=== PATIENT | female | born 1980 | race Caucasian/White ===

== ENCOUNTER → 2019-12-18 09:10 | Outpatient (CLI) | payer BC, SELFPAY ==
[2014-01-25 11:43] VITALS: BMI 21.6
--- NOTE | 2019-12-18 09:14 | BI_ITS ---
MAMMOGRAPHY - BILATERAL DIAGNOSTIC REASON FOR EXAM: Female, 39 years old. BILAT DX FOR LT LUMP - NO FAM HX - LT MASTITIS FOR 15 YRS - CURRENT HEALING /DRAINING WOUND - PRE OP FOR REMOVAL OF DUCTS - PT HAS HAD ABCESS DRAINED TWICE THROUGH THE YEARS PERTINENT HISTORY: Non-contributory. TECHNIQUE: Digital bilateral breast sanjeev (3D mammographic acquisition) in the CC and MLO projections. 2-D mediolateral oblique (MLO) and craniocaudad (CC) views of both breasts were obtained. CAD: Full Field Digital Mammography with Computer Added Detection was performed. COMPARISON: None. FINDINGS: Breast Composition: The breasts are extremely dense, which lowers the sensitivity of mammography. Small punctate calcifications are seen in the medial far anterior aspect of the right breast most likely represent skin calcifications. Follow-up in 6 months would be helpful to determine stability. There are no dominant masses or suspicious calcifications. No other significant abnormalities are identified. BI/DIAG MAMM W/CAD, BILAT IMPRESSION: Benign bilateral diagnostic mammogram. Short-interval follow-up recommended in six months. (C) Small punctate calcifications are seen in the medial far anterior aspect of the right breast most likely represent skin calcifications. Follow-up in 6 months would be helpful to determine stability. ASSESSMENT CATEGORY: BIRADS Category 3: Probably Benign - Short-Interval Follow-up Suggested. A letter regarding these results will be sent to the patient by the facility within 30 days. Approximately 10% of breast cancers are not detected by mammography. A normal mammogram should not delay biopsy of a clinically suspicious abnormality. Electronically Signed: Rojas Willoughby, at 13:00 EDT Tel , Service support ,
--- NOTE | 2019-12-18 10:42 | US_ITS ---
STUDY: ULTRASOUND BREAST - LEFT REASON FOR EXAM: Female, 39 years old. Left breast abscess TECHNIQUE: Axial and longitudinal images of the LEFT breast were performed with a high resolution ultrasound transducer. # OF IMAGES: 53 COMPARISON: None. FINDINGS: LEFT Breast: There is a lesion #1 in the medial aspect of the left breast. The lesion measures 1.7 x 1.7 x 1 cm in size. Clock notation: 9 o''clock position. Distance from nipple: 3 cm. Posterior Enhancement: Yes. Posterior Shadowing: None. Margins: Sharp and jagged. Echogenicity: Hypoechoic. Compression effect on Shape: No change. There is a lesion # 2 in the retroareolar region. The lesion measures 1.6 x 1.3 x 0.8 cm in size. Posterior Enhancement: Yes. Posterior Shadowing: None. Margins: Sharp and smooth. Echogenicity: Anechoic. Compression effect on Shape: No change. US/Breast Limited Unilateral IMPRESSION: 2 lesions in the left breast as described above are consistent with abscesses. ASSESSMENT CATEGORY: BIRADS Category 3: Probably Benign - Short-Interval Follow-up Suggested. A letter regarding these results will be sent to the patient by the facility within 30 days. Electronically Signed: Rojas Willoughby, at 17:24 EDT Tel , Service support ,
== END ==
PROVIDERS: PCP Student in an Organized Health Care Education/Training Program; Referring Provider Surgery; Visit Provider Surgery
DX: N61.1 Abscess of the breast and nipple (principal)
CPT/HCPCS: 76642; 77062; 77066; G0279

== ENCOUNTER 2019-12-31 05:43 | Day surgery (SDC) | payer BC, SELFPAY ==
[2019-12-24 06:03] VITALS: BMI 24.0
[2019-12-24 16:47] LABS: Absolute Lymphocyte Count 2.48 X10^3/uL (0.83-4.51); Absolute Neutrophil Count 5.5 X10^3/uL (2.0-7.7); Basophil# 0.07 X10^3/uL; Basophil% 0.8 % (0-1); Eosinophil# 0.08 X10^3/uL; Eosinophils% 0.9 % (0-5); Hematocrit 40.8 % (37-47); Hemoglobin 13.5 g/dL (12.0-15.0); Lymphocyte # 2.48 X10^3/ul (4.0); Lymphocyte % 28.4 % (19-41); Mean Corp Hgb Conc 33.1 g/dL (32-36); Mean Corpuscular Volume 99.8 fL (81-99); Mean Platelet Vol. 9.5 fl (6.2-12.0); Monocyte# 0.62 X10^3/uL; Monocyte% 7.1 % (0-10); NRBC Flagged by Analyzer 0 % (0-5); Neutrophil # 5.46 X10^3/uL (2.7-7.7); Neutrophil % 62.6 % (47-70); Platelet Count 362 K/mm3 (150-450); RBC Distribution Width CV 11.6 % (11.6-14.6); RBC Distribution Width SD 42.4 fl (35.1-43.9); Red Blood Count 4.09 M/mm3 (4.2-5.4); White Blood Count 8.7 K/mm3 (4.4-11.0)
[2019-12-24 17:01] LABS: Anion Gap 3 (5-15); BUN 13 mg/dL (7-18); BUN/Creat Ratio 15.4 RATIO (10-20); Calcium,Total 9.4 mg/dL (8.5-10.1); Chloride 107 mmol/L (98-107); Creatinine, Serum 0.84 mg/dL (0.55-1.02); EST Glomerular Filtration Rate 79 mL/min (>60); Est Glom Filt Rate - Afr Amer 96 mL/min (>60); Glucose 95 mg/dL (74-106); Sodium Level 136 mmol/L (136-145)
--- NOTE | 2019-12-31 05:47 | HP.PCM_ITS ---
Problem List (1) Left breast abscess Status: Acute History and Physical Date of Admission: 12/31/19 Intake Visit Reasons: LEFT BREAST MASITIS/ REJI 12/17 [facility] Chief Complaint: left breast abscess--recurrent Senior Operator Required: No Is patient in pain?: Yes Allergies No Known Allergies Allergy (Verified 12/24/19 15:10) Medications multivitamin,sg-ndsj-hllgmowa 1 tab PO DAILY 12/24/19 [History] Is last menstrual period known: No Post menopausal: No Patient : No [facility] Medical History (Updated 12/24/19 @ 15:[address] Jean Dimas MD) Tobacco dependency (Acute) Left breast abscess (Acute) Anemia (Acute) Ulcerative colitis (Acute) recurrent breast abscess (Acute) Surgical History (Updated 12/24/19 @ 15:09 by Cass Ingram) History of breast surgery (Acute) Family History (Updated 12/24/19 @ 15:09 by Cass Ingram) Mother Asthma Social History (Updated 12/24/19 @ 15:[address] Jean Dimas MD) Smoking Status: Former smoker HPI HPI HPI: CASSANDRA STARKS, is a 39 F who presents to the office today for surgical consultation regarding chronic recurring left breast abscess. I assisted the patient back in 2004 with an I&D of a left breast abscess. At that time she stated that she had a history of ulcerative colitis. She was followed by Dr. Jaison De Leon. She had been on mesalamine and steroids in the past but recently her UC apparently has been under excellent control. She states that she does not have any routine particular follow-up regarding that but what is most pertinent is that she is not currently on any immune modulating medications. She was recently seen by Dr. Marylu Roblero because of a spontaneous draining medial left breast abscess. Patient was placed on cephalexin 5 mg twice daily. Although apparently March 2019 the patient had a abscess and recommendations were made for much more radical debridement apparently on this occasion Dr. Graves suggested the patient that referrals to plastic surgery at [facility] would be pertinent at this time. The patient has had chronic nipple inversion of the left breast. At the [facility] on December 18, 2019 she had bilateral diagnostic mammography. Small punctate calcifications in the medial far anterior aspect of the right breast were seen probably skin calcifications follow-up in 6 months offered as an option. She was also felt to have left breast abnormality so on December 17 left breast ultrasound was performed. In the medial aspect of the left breast 9 o'clock position 3 cm from the nipple there is a 1.7 x 1.7 x 1 cm sized irregular lesion. The second lesion is in the retroareolar area of the left breast measuring 1.6 x 1.3 x 0.8 cm. These findings are felt to be benign. The patient states that she had Dr. Roblero do a I&D March 2019. The patient did well for a couple months and had recurrent pain. She actually describes an episode where she was missing work for approximately a week due to the severe pain. The area then spontaneously drained She repetitively states that she is not overly concerned by the cosmetics. She has had chronic nipple inversion on the left. She is hoping for definitive management. She has been a chronic cigarette smoker. She continues to smoke cigarettes at the rate of a half a pack per day. She states that she is tried multiple different approaches to stop but none of them have been successful. She is aware that cigarette smoking correlates with her chronic breast abscess issues [facility] Imaging Services [address] [place] [address] DIAG MAMM W/CAD, BILAT MR#: [id number] Name: CASSANDRA DE LA GARZA [facility] #:[id number] : 1980F 39 From: Rojas Willoughby MD PCP:Dr. Wiliam Peacock, DO Status:REG CLI Study:DIAG MAMM W/CAD, BILAT Date of Exam:12/18/19 Exam#[id number] Ordering Dr: Jean Dimas MD MAMMOGRAPHY - BILATERAL DIAGNOSTIC REASON FOR EXAM: Female, 39 years old. BILAT DX FOR LT LUMP - NO FAM HX - LT MASTITIS FOR 15 YRS - CURRENT HEALING /DRAINING WOUND - PRE OP FOR REMOVAL OF DUCTS - PT HAS HAD ABCESS DRAINED TWICE THROUGH THE YEARS PERTINENT HISTORY: Non-contributory. TECHNIQUE: Digital bilateral breast sanjeev (3D mammographic acquisition) in the CC and MLO projections. 2-D mediolateral oblique (MLO) and craniocaudad (CC) views of both breasts were obtained. CAD: Full Field Digital Mammography with Computer Added Detection was performed. COMPARISON: None. FINDINGS: Breast Composition: The breasts are extremely dense, which lowers the sensitivity of mammography. Small punctate calcifications are seen in the medial far anterior aspect of the right breast most likely represent skin calcifications. Follow-up in 6 months would be helpful to determine stability. There are no dominant masses or suspicious calcifications. No other significant abnormalities are identified. BI/DIAG MAMM W/CAD, BILAT IMPRESSION: Benign bilateral diagnostic mammogram. Short-interval follow-up recommended in six months. (C) Small punctate calcifications are seen in the medial far anterior aspect of the right breast most likely represent skin calcifications. Follow-up in 6 months would be helpful to determine stability. ASSESSMENT CATEGORY: BIRADS Category 3: Probably Benign - Short-Interval Follow-up Suggested. A letter regarding these results will be sent to the patient by the facility within 30 days. Approximately 10% of breast cancers are not detected by mammography. A normal mammogram should not delay biopsy of a clinically suspicious abnormality. Electronically Signed: Rojas Willoughby, at 13:00 EDT Tel , Service support , [facility] Imaging Services [address] [place] [address] Breast Limited Unilateral MR#: [id number] Name: CASSANDRA DE LA GARZA [facility] #:[id number] : 1980F 39 From: Rojas Willoughby MD PCP:Dr. Wiliam Peacock, DO Status:REG CLI Study:Breast Limited Unilateral Date of Exam:12/18/19 Exam#[id number] Ordering Dr: Jean Dimas MD STUDY: ULTRASOUND BREAST - LEFT REASON FOR EXAM: Female, 39 years old. Left breast abscess TECHNIQUE: Axial and longitudinal images of the LEFT breast were performed with a high resolution ultrasound transducer. # OF IMAGES: 53 COMPARISON: None. FINDINGS: LEFT Breast: There is a lesion #1 in the medial aspect of the left breast. The lesion measures 1.7 x 1.7 x 1 cm in size. Clock notation: 9 o''clock position. Distance from nipple: 3 cm. Posterior Enhancement: Yes. Posterior Shadowing: None. Margins: Sharp and jagged. Echogenicity: Hypoechoic. Compression effect on Shape: No change. There is a lesion # 2 in the retroareolar region. The lesion measures 1.6 x 1.3 x 0.8 cm in size. Posterior Enhancement: Yes. Posterior Shadowing: None. Margins: Sharp and smooth. Echogenicity: Anechoic. Compression effect on Shape: No change. US/Breast Limited Unilateral IMPRESSION: 2 lesions in the left breast as described above are consistent with abscesses. ASSESSMENT CATEGORY: BIRADS Category 3: Probably Benign - Short-Interval Follow-up Suggested. A letter regarding these results will be sent to the patient by the facility within 30 days. Electronically Signed: Rojas Willoughby, at 17:24 EDT Tel , Service support , HPI HPI HPI: CASSANDRA STARKS, is a 39 F who presents to the office today for Exam Const General: cooperative, healthy appearing, comfortable, no acute distress Nutritional Appearance: average body habitus Orientation: alert, awake HENOK Head: normal to inspection Chest Other: Right breast: No focal mass, no nipple discharge, no axillary or clavicular adenopathy Left breast: Draining site medial periareolar left breast. Strongly retracted left nipple. Erythema medially. Induration palpable. No axillary or clavicular adenopathy. Resp Effort & Inspection: normal respiratory effort Auscultation: clear to auscultation bilaterally Cardio Rate: regular rate Rhythm: regular rhythm GI Palpation: soft, no hepatosplenomegaly Neuro General: alert Cognition: normal cognition Extrem General: no calf tenderness Psych Affect: normal affect Assessment & Plan Problems 1. Left breast abscess N61.1 2. Tobacco dependency F17.200 Plan Chronic recurring left breast abscess in light of chronic tobacco addiction. Chronic left nipple retraction. Separate abscess cavity medial left breast and retroareolar left breast. I have offered her a wide retroareolar and medial debridement of the left breast. I discussed securing of the retroareolar aspect of the nipple with an absorbable suture. I did not feel comfortable with nipple excision at this time as I had concerns as to whether the areola would heal with suture approximation in light of the planned radical debridement. Cosmetically she is aware that the nipple retraction will certainly persist. She is aware that future surgery dealing with a dimple may be required. She is aware that chronic breast abscesses are difficult to definitively resolve particularly in light of the ongoing tobacco use. We did briefly discuss the recommendation for plastic surgery referral to [facility]. The patient is not interested in that at this time. She states that she will except some scarring and deformity. She is aware that the [facility] is currently reporting a low local incidence of Covid-19. She has had an opportunity to ask and have questions answered. Pending COVID testing we will schedule and proceed as noted. I appreciate the opportunity of assisting with her surgical care Copy: Dr. Wiliam Dimas M.D., F.A.C.S. Coding Level of Care Code Off vis,new,level 3 Diagnoses Left breast abscess N61.1 Tobacco dependency F17.200 I have re-examined the patient. There are no clinical changes since date of exam. Procedure Criteria Procedure Type: Elective COVID Risk Discussion: The surgeon/proceduralist and patient have discussed in detail the risk of exposure to and/or potential harm posed by the COVID-19 virus with having a surgery/procedure at this time versus the risk of delaying the surgery/procedure. It is not possible to know either the risk of delaying the surgery or procedure or chance of getting an infection with perfect accuracy, but a joint decision was made between the patient and the surgeon/proceduralist to proceed at this time with the scheduled surgery/procedure as indicated on the consent form.
[2019-12-31 06:04] VITALS: BP 138/93; PULSE 91; RESP 16; TEMP 36.6; O2SAT 99; BMI 24.1
[2019-12-31 06:06] LABS: Internal QC Validated? YES +Cl - CLEAR BKGD; Pregnancy, Urine Negative Negative
[2019-12-31] MEDS: Lactated Ringers 1,000 ML 100 ML IV (06:30)
--- NOTE | 2019-12-31 07:30 | BRBX_PTH ---
PATIENT: CASSANDRA DE LA GARZA LOC: [facility] [place] U#:[id number] AGE/SX: 39/F ROOM: RE12/31/[address]: Dr. Jean Dimas MD : 1980 BED: DIS: 12/31/2019 SPEC #: [id number] RECD: 12/31/19 09:28 STATUS: [facility] #: [id number] MAYCOL: 12/31/19 07:[address]: Jean Dimas DEPT: SURGICAL PATHOLOGY RECD BY: Leroy Loyola ENTERED: 12/31/19 10:47 SP TYPE: BREAST BX OTHR DR: Dr. Wiliam Peacock, DO Tissues: Left breast, NOS Procedures: Surgery Specimen Level IV HEADER OPERATION: Wide debridement chronic medial and retroareolar breast abscess PRE-OP DIAGNOSIS: Chronic left breast abscess TISSUE SUBMITTED: Left retroareolar breast abscess MICROSCOPIC DIAGNOSIS Left breast, retroareolar region, lumpectomy: Consistent with focal abscess formation. Fibrocystic change. Focal intraductal hyperplasia without atypia. Focal Banal microcalcifications. No evidence of malignancy. AM:valerie 01/01/20 MICROSCOPIC DESCRIPTION Slides are reviewed. GROSS DESCRIPTION Received in fixative is one container labeled with the patient's name and designated left retroareolar breast abscess. The specimen consists of a piece of fibroadipose tissue measuring 5 x 4 x 3 cm. Also present in the container is a detached piece of fibroadipose tissue measuring 2.5 x 1.5 x 1 cm. A piece of skin is noted in the largest piece measuring 2 x 0.3 cm. Sections reveal extensive fibrous cut surfaces. No obvious mass lesion is identified. Physician Gynecologist sections are submitted in eight cassettes as follows: 1 - smaller piece of tissue, 2-8 - larger piece of tissue (cassette 2 also contains the skin, entirely submitted). / ALBERTO:valerie 12/31/19 TC:2 CPT: 76762
[2019-12-31] MEDS: Cefazolin 2 GM in 0.9% Normal Saline 100 ML IV (07:34)
[2019-12-31] MEDS: Bupivacaine Mpf 0.5% 30 ML VIAL (08:30)
--- NOTE | 2019-12-31 08:41 | PCM.OPRPT ---
Problem List (1) Left breast abscess Status: Acute Report of Operation Date of Procedure: 12/31/19 Pre-Operative Diagnosis: Chronic left breast retroareolar breast abscesses Post-Operative Diagnosis: Chronic retroareolar left breast abscesses and chronic nipple inversion Surgery/Procedure Performed:: Left retroareolar breast abscess debridement Description of Surgical Findings:: Timeout and informed consent was obtained. 39-year-old female was taken to the operating place upon the table underwent general anesthesia. The left breast was sterilely prepped and draped. She had an area of spontaneous drainage medial left breast. This drainage site was curvilinearly elliptically excised. Sharp dissection was instituted immediately retroareolar Matthias. The nipple was found to be tightly inverted tissue was cleared off the base of the nipple and it was re-everted. Retroareolar tissue was extraordinarily densely fibrotic. No clear abscess pocket was encountered. Electrocautery dissection and sharp dissection was used to excise the retroareolar tissue and the tissue left breast 3 o'clock position. All of this was excised and mass. What was of note was how densely fibrous the tissue was. 1 droplet of purulent material was encountered and sent for culture. There was a small area of greenish fluid that was sent for anaerobic culture. No definitive abscess cavity was encountered just extraordinarily dense fibrous white breast tissue. There was no clear evidence of residual abscess or drainage. The base of the nipple was secured with interrupted 2-0 chromic. Hemostasis was obtained throughout with electrocautery and 2-0 chromic suture ligatures. The retroareolar breast tissue was partially approximated with interrupted 2-0 chromic. The edges of the skin lesion was approximated interrupted 5-0 Vicryl. Saline moistened gauze was placed to the debridement site. Dry covered dressings. Sponge and instrument and needle counts reported to the surgeon to be correct. Blood loss minimal. Specimens debrided retroareolar breast tissue and skin. Drains the gauze packing. Blood loss minimal. Jean Dimas M.D., F.A.C.S.
--- NOTE | 2019-12-31 08:45 | PCM.DC.GS ---
Discharge Diet: Light diet - advance as tolerated - if you have questions about your diet instructions, please talk to you doctor. Discharge Activity: May Not Drive - for 1 week or while taking narcotic pain medicine. May shower in (days): 2 Lifting Restrictions: 10 pounds Call your doctor if your incision/area has: Continuous Slow Oozing, Sudden Increased Bleeding, Increased Pain/ Swelling, Increased Redness, Foul Smelling Discharge Call your doctor if you observe: Fever of 101 or Higher Suture Line Care: Avoid Pulling/Pushing, Avoid Pinching/Bending Additional Dressing/Incision Instructions:: Saline wet to dry dressing changes will be need to be performed once or twice daily. Please contact the office to arrange for nursing appointment tomorrow to initiate the first dressing change for instructions. It would be most helpful to have a grading machine operator accompany you to learn the dressing changes. Allergies/Adverse Reactions: Allergies No Known Allergies Allergy (Verified 12/31/19 06:00) Medications to take at Discharge NK 12/25/19 Primary Care Physician: Wiliam Peacock DO [Primary Care Provider] - Test Results: Test results from this visit will be discussed in further detail at your follow-up appointment, if applicable. Please Follow Up With: Jean Dimas MD - [phone] When: Call to make an appointment to be seen in about 1 days.
[2019-12-31 08:50] VITALS: BP 138/93; BP 145/93; PULSE 105; RESP 16; TEMP 36.6; O2SAT 98
[2019-12-31 09:00] VITALS: BP 138/93; BP 145/93; PULSE 98; RESP 16; O2SAT 98
[2019-12-31 09:15] VITALS: BP 138/93; BP 148/92; PULSE 88; RESP 16; O2SAT 98
[2019-12-31 09:24] VITALS: BP 138/93; BP 149/98; PULSE 92; RESP 16; TEMP 36.7; O2SAT 99
[2019-12-31 10:30] VITALS: BP 138/93; BP 152/91; PULSE 89; RESP 16; TEMP 36.7; O2SAT 100
== END 2019-12-31 10:51 | disposition home or self-care (01) ==
LOC: SDC 05:43 → AC 05:44
PROVIDERS: Anesthesiology; PCP Student in an Organized Health Care Education/Training Program; Referring Provider Surgery; Visit Provider Surgery
PROC: (CPT 11042; principal; 2019-12-31 07:15)
DX: N60.12 Diffuse cystic mastopathy of left breast (principal); N62 Hypertrophy of breast; N61.1 Abscess of the breast and nipple; N64.59 Other signs and symptoms in breast; R92.0 Mammographic microcalcification found on diagnostic imaging of breast; Z11.59 Encounter for screening for other viral diseases; K51.90 Ulcerative colitis, unspecified, without complications; Z86.2 Personal history of diseases of the blood and blood-forming organs and certain disorders involving the immune mechanism; Z87.891 Personal history of nicotine dependence
CPT/HCPCS: 00400; 11042; 11045 ×2; 36415; 80048; 81025; 85025; 87070; 87075; 87205; 87635; 88305; 94799; J7120; J2405; U0003

== ENCOUNTER → 2021-01-15 16:26 | Outpatient (CLI) | payer BC, SELFPAY | PROVIDERS: PCP Student in an Organized Health Care Education/Training Program; Referring Provider Student in an Organized Health Care Education/Training Program; Visit Provider Student in an Organized Health Care Education/Training Program | DX: Z01.84 Encounter for antibody response examination (principal) | CPT/HCPCS: 36415; 86769 ==

== ENCOUNTER 2022-03-03 16:10 | Emergency (ER) | payer BC, SELFPAY ==
[2022-03-03] VITALS (7 sets, daily range): BP systolic 154–182; BP diastolic 97–115; PULSE 86–110; RESP 15–22; TEMP 36.3; O2SAT 98–100; BMI 23.6
--- NOTE | 2022-03-03 16:17 | EDS_ITS ---
HPI History of Present Illness Chief Complaint: Chest Pain Narrative Narrative: 41-year-old female here with chest pain. History of hypertension, tobacco abuse. The patient states approximate hour prior to arrival she developed midsternal chest pain that is constant, severe nonpleuritic and nonexertional. She denies syncope. She denies cocaine or methamphetamine abuse. Denies any bleeding diathesis. Denies any volume losses vomiting or diarrhea. The patient denies recent surgery in the last 4 weeks or immobilization in the last 3 days, denies previous diagnosis of DVT or PE, hemoptysis, unilateral leg swelling or malignancy with treatment the last 6 months. No estrogen use noted. Patient denies sudden onset of pain, no tearing sensation, no migratory symptoms, no new numbness, weakness or loss of sensation. Patient denies family history or personal history of Marfan syndrome or Lucio-Danlos Old chart reviewed: [facility] Medical History Anemia Left breast abscess recurrent breast abscess Tobacco dependency Ulcerative colitis Home Medications hydroxyzine HCl 25 mg tablet 25 mg PO PRN PRN Anxiety 03/03/22 [History Last Taken Unknown] Allergy/AdvReac Type Severity Reaction Status Date / Time No Known Allergies Allergy Verified 03/03/22 16:35 Family History Mother Asthma Surgical History History of breast surgery Social History Smoking Status: Former smoker ROS ROS ED ROS Narrative Constitutional: Denies fever HEENT: Denies sore throat Neck: Denies neck pain Cardiovascular: Endorses chest pain Respiratory: Endorses shortness of breath GI: Denies nausea vomiting or abdominal pain : Denies changes in urinary habits Musculoskeletal: Denies muscle or joint pain Neurologic: Denies numbness weakness or loss of sensation Skin denies rash EXAM Physical Exam Narrative Exam Narrative: Nursing triage notes reviewed, Vital signs reviewed Constitutional: please see mdm HENT: MMM Eyes: Pupils equal round and reactive to light, Extraocular muscles intact Neck: No stridor, no JVD, full neck ROM Lungs: Clear to auscultation, No wheezing or rales. No increased work of breathing, no conversational dyspnea, no accessory muscle use, no nasal flaring. No respiratory distress noted Heart: Regular rate and rhythm, No murmurs, No rubs and No gallops, 2+ distal pulses (radial, femoral, posterior tibial) in all extremities Abdomen: Soft, there is no tenderness, rigidity, rebound or guarding, no obvious peritoneal signs, no palpable pulsatile abdominal masses, no auscultated abdomi nal bruit : No CVAT Extremities: No edema Neuro: No focal neurological deficits, cranial nerves II through XII intact, 5/5 strength in all extremities. Intact sensation to light touch in all extremities, 2+ reflexes bilateral patella dens. Normal gait. No ataxia. Skin: No rash or lesions noted Const Vital Signs: 03/03/22 16:10 03/03/22 16:13 03/03/22 16:29 Temperature 97.4 F L Temperature Source Temporal Pulse Rate 109 H 103 H Respiratory Rate 20 H Respiratory Effort Blood Pressure 182/108 H 168/115 H Blood Pressure Mean 132 132 Pulse Ox 100 100 Oxygen Delivery Method Room Air Room Air 03/03/22 16:35 03/03/22 17:33 03/03/22 18:06 Temperature Temperature Source Pulse Rate 87 86 Respiratory Rate 15 19 H Respiratory Effort Labored Blood Pressure 154/106 H 156/97 H Blood Pressure Mean 122 116 Pulse Ox 99 100 Oxygen Delivery Method Room Air Room Air 03/03/22 19:00 Temperature Temperature Source Pulse Rate 93 Respiratory Rate 17 Respiratory Effort Blood Pressure 157/97 H Blood Pressure Mean 117 Pulse Ox 98 Oxygen Delivery Method Room Air Heart Score History: Slightly/Non-Suspicious Age: </= 45 years Risk Factors: No Risk Factors Troponin: </= Normal Limit Score: 0 MDM MDM MDM Narrative Medical decision making narrative: 41-year-old female here with chest pain. Patient was initially hypertensive, tachycardic, tachypneic. Exam without focal cardiopulmonary abnormalities. No pulse deficits. Patient did appear anxious. Obtained labs, images to further elucidate etiology of patient complaint specifically ruling out ACS, anemia, electrolyte abnormality pneumonia, pneumothorax, signs of CHF. Labs and images were remarkable for no evidence of volume overload, no evidence of electrolyte a bnormality, anemia, myocardial ischemia. Obtained a delta troponin which was negative. Patient has a low risk heart score. No indication for further ED observation, testing, admission for stress test or other confirmatory testing at this time. Patient was referred to her primary care physician for outpatient stress test Lab Data Attestation: I reviewed the patient's lab results. Lab results narrative: CBC without leukocytosis, severe anemia, no thrombocytopenia. BMP without evidence of significant electrolyte abnormalities, no anion gap, no acute kidney injury. Troponin is negative, no evidence of myocardial ischemia, will await delta troponin BNP without significant elevation making volume overload, increased transfer wall pressure, increased ventricular stretch less likely Labs: Laboratory Results - last 24 hr 03/03/22 03/03/22 03/03/22 16:20 16:20 16:20 WBC 8.2 RBC 4.46 Hgb 14.6 Hct 41.1 MCV 92.2 MCH 32.7 H MCHC 35.5 RDW Std Deviation 38.7 RDW Coeff of Betsy 11.4 L Plt Count 399 MPV 9.4 Immature Gran % (Auto) 0.200 Neut % (Auto) 48.2 Lymph % (Auto) 38.0 [place] % (Auto) 8.8 Eos % (Auto) 3.8 Baso % (Auto) 1.0 Absolute Neuts (auto) 3.9 Absolute Lymphs (auto) 3.10 Nucleated RBC % 0 Sodium 138 Potassium 3.5 Chloride 104 Carbon Dioxide 26.0 Anion Gap 8 BUN 13 Creatinine 0.86 Estim Creat Clear Calc 72.84 Est GFR (MDRD) Af Amer 92 Est GFR (MDRD) Non-Af 76 BUN/Creatinine Ratio 15.1 Glucose 114 H Calcium 10.1 Troponin I High Sens < 3 L B-Natriuretic Peptide 5.8 03/03/22 18:45 WBC RBC Hgb Hct MCV MCH MCHC RDW Std Deviation RDW Coeff of Betsy Plt Count MPV Immature Gran % (Auto) Neut % (Auto) Lymph % (Auto) [place] % (Auto) Eos % (Auto) Baso % (Auto) Absolute Neuts (auto) Absolute Lymphs (auto) Nucleated RBC % Sodium Potassium Chloride Carbon Dioxide Anion Gap BUN Creatinine Estim Creat Clear Calc Est GFR (MDRD) Af Amer Est GFR (MDRD) Non-Af BUN/Creatinine Ratio Glucose Calcium Troponin I High Sens 4 B-Natriuretic Peptide Radiography Chest X-Ray - ED: Read by ED Physician Diagnostic Testing: Clinical Impression(s) from Imaging Studies Chest X-Ray 03/03/22 16:45 IMPRESSION: Normal x-ray examination of the chest. Electronically Signed: Chapin Lopez DO at 16:58 EDT Reading Location ID and State: [address] [place] [address] Tel [phone], Service support , Chest x-ray within normal limits, no evidence of pneumothorax, cardiomegaly. Radiology interprets and agrees. EKG Initial EKG: Attestation: I personally reviewed and interpreted this EKG as follows: Comments: EKG with sinus tachycardia, normal axis, normal intervals, no STEMI, no S1, q 3, T3. No evidence of right heart strain Treatment and Re-Evaluation Narrative: Patient's blood pressure improved without intervention. She is appropriate for discharge home. PE less likely given low risk Wells score. Aortic dissection is thought to be less likely given no sudden ripping or te aring pain, migratory pain, palpable pulse inequalities, no focal neurologic deficits concurrent with chest pain. Chance of dissection less than 05/1999. Pericarditis less likely given no pathognomonic EKG changes (no diffuse ST elevations, CA depressions). GI etiology (i.e. Boerhaave syndrome) less likely given no chest or neck crepitus, no vomiting or forced retching. I completed a HEART Score to screen for Major Adverse Cardiac Event (MACE) in this patient. The evidence indicates that the patient is very low risk for MACE and this is consistent with my clinical intuition. The risk of further workup or hospitalization for MACE is likely higher than the risk of the patient having a MACE. It is, therefore, in the patient?s best interest not to do additional emergent testing or to be hospitalized for MACE at this time. Shared Decision-Making No hospitalization indicated I have discussed with the patient my clinical impression and the result of the HEART Score to screen for MACE, as well as the risks of further testing and hospitalization. The HEART Score shows that the risk for MACE is less than 1%. Although the risk of MACE has not been completely eliminated, the risks of fu rther testing or hospitalization for MACE likely exceed any potential benefit, and the patient agrees with not pursuing further emergent evaluation or hospitalization for MACE at this time. Discharge Plan Triage Chief Complaint: Chest Pain ED Provider: Adan,Karel Dx/Rx/DC Orders Clinical Impression: Chest pain, Elevated blood pressure reading Instructions: Controlling High Blood Pressure, ED Chest Pain, Uncertain Cause, ED High Blood Pressure Hypertension Prescriptions: No Action hydroxyzine HCl 25 mg tablet 25 mg PO PRN PRN (Reason: Anxiety) Label Comments: TAKE 1 TABLET BY ORAL ROUTE PER DAILY NEEDED FOR ANXIETY Rx Instructions: ANXIETY Primary Care Provider: Wiliam Peacock Referrals: Wiliam Peacock DO [Primary Care Provider] - Activity Restrictions/Additional Instructions: Please follow-up with your primary care physician at the next available appointment. Please discuss starting blood pressure medicine Disposition Disposition: Home, Self Care
[2022-03-03] MEDS: 0.9% Normal Saline 1,000 ML 999 ML IV (16:45)
[2022-03-03] MEDS: Aspirin 81 MG TAB.CHEW 324 MG PO (16:45)
--- NOTE | 2022-03-03 16:45 | RAD_ITS ---
STUDY: X-RAY CHEST REASON FOR EXAM: Female, 41 years old. Chest pain. TECHNIQUE: Single AP portable view of the chest. COMPARISON: None. FINDINGS: The lungs are clear and expanded. There is no demonstrated pleural abnormality. Normal size heart. Normal mediastinum and maik. Normal visualized pulmonary arteries. Normal visualized aortic arch and descending thoracic aorta. Normal visualized thoracic spine. Normal visualized ribs, clavicles, and shoulders. There is no demonstrated abnormality of the visualized soft tissue structures of the upper abdomen. RAD/Chest 1 View (Portable) IMPRESSION: Normal x-ray examination of the chest. Electronically Signed: Chapin Lopez DO at 16:58 EDT ,
[2022-03-03 16:50] LABS: Absolute Neutrophil Count 3.9 X10^3/uL (2.0-7.7); Basophil# 0.08 X10^3/uL; Eosinophil# 0.31 X10^3/uL; Eosinophils% 3.8 % (0-5); Hematocrit 41.1 % (37-47); Hemoglobin 14.6 g/dL (12.0-15.0); Mean Corp Hgb Conc 35.5 g/dL (32-36); Mean Corpuscular Hgb 32.7 pg (27.0-32.0); Mean Corpuscular Volume 92.2 fL (81-99); Mean Platelet Vol. 9.4 fl (6.2-12.0); Monocyte# 0.72 X10^3/uL; Monocyte% 8.8 % (0-10); NRBC Flagged by Analyzer 0 % (0-5); Neutrophil # 3.92 X10^3/uL (2.7-7.7); Neutrophil % 48.2 % (47-70); Platelet Count 399 K/mm3 (150-450); RBC Distribution Width CV 11.4 % (11.6-14.6); RBC Distribution Width SD 38.7 fl (35.1-43.9); Red Blood Count 4.46 M/mm3 (4.2-5.4); White Blood Count 8.2 K/mm3 (4.4-11.0)
[2022-03-03 17:09] LABS: Anion Gap 8 (5-15); BUN 13 mg/dL (7-18); BUN/Creat Ratio 15.1 RATIO (10-20); Calcium,Total 10.1 mg/dL (8.5-10.1); Chloride 104 mmol/L (98-107); Creatinine, Serum 0.86 mg/dL (0.55-1.02); EST Glomerular Filtration Rate 76 mL/min (>60); Est Glom Filt Rate - Afr Amer 92 mL/min (>60); Estimated Creatinine Clearance 72.84 ml/min; Glucose 114 mg/dL (74-106); Potassium 3.5 mmol/L (3.5-5.1); Sodium Level 138 mmol/L (136-145); Troponin-I HS (w/2H Reflex) < 3 pg/mL (3.0-54.0)
[2022-03-03 17:11] LABS: BNP,B-Type NATRIURETIC PEPTIDE 5.8 pg/mL (0-100)
[2022-03-03 18:38] LABS: Reflex Troponin-HS? (from REC) Y
[2022-03-03 19:10] LABS: Troponin-I HS 4 pg/mL (3.0-54.0)
== END 2022-03-03 19:39 | disposition home or self-care (01) ==
PROVIDERS: Emergency Provider Emergency Medicine; PCP Student in an Organized Health Care Education/Training Program; Visit Provider Emergency Medicine
DX: R07.89 Other chest pain (principal); K51.90 Ulcerative colitis, unspecified, without complications; Z87.891 Personal history of nicotine dependence; I10 Essential (primary) hypertension; R00.0 Tachycardia, unspecified; R06.82 Tachypnea, not elsewhere classified
CPT/HCPCS: 71045; 80048; 83880; 84484; 85025; 93005; 99284; A4216

== ENCOUNTER → 2022-07-12 | Outpatient (CLI) | payer BC, SELFPAY ==
[2022-07-12 12:50] LABS: AST(SGOT) 18 U/L (15-37); Alanine Aminotransfer ALT/SGPT 26 U/L (13-56); Albumin, Serum 3.8 g/dL (3.2-5.0); Alkaline Phosphatase 53 U/L (45-117); Anion Gap 8 (5-15); BUN 6 mg/dL (7-18); Chloride 103 mmol/L (98-107); Creatinine, Serum 0.86 mg/dL (0.55-1.02); EST Glomerular Filtration Rate 77 mL/min (>60); Est Glom Filt Rate - Afr Amer 93 mL/min (>60); Globulin 3.9 g/dL (2.2-4.2); Glucose 108 mg/dL (74-106); Potassium 3.9 mmol/L (3.5-5.1); Protein, Total 7.7 g/dL (6.4-8.2); Sodium Level 140 mmol/L (136-145)
== END | disposition home or self-care (01) ==
PROVIDERS: PCP Student in an Organized Health Care Education/Training Program; Visit Provider Nurse Practitioner Acute Care
DX: K51.00 Ulcerative (chronic) pancolitis without complications (principal)
CPT/HCPCS: 80053